=== PATIENT | female | born 1970 | race African-American/Black ===

== ENCOUNTER 2016-06-14 13:38 | Emergency (ER) | payer SELFPAY ==
--- NOTE | 2016-06-14 13:51 | ER Document Report ---
ED Medical Screen (RME) - General Stated Complaint: DIZZINESS Notes: Patient complains of intermittent dizziness and lightheadedness. States she has had episodes of this past and was diagnosed with anemia. Also complains of left hand numbness and sore throat. Patient does have history of carpal tunnel in left hand and wears a brace. She denies chest pain or shortness of breath. States she had a fever on Monday of 100.1. Denies nasal congestion. Patient states she was told recently that she has a type II diabetic per the health department. 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 I have greeted and performed a rapid initial assessment of this patient. A comprehensive ED assessment and evaluation of the patient, analysis of test results and completion of the medical decision making process will be conducted by additional ED providers. TRAVEL OUTSIDE OF THE [place] IN LAST 30 DAYS: No - Related Data Allergies/Adverse Reactions: Penicillins Allergy (Verified 06/14/16 13:50) Edema Past Medical History - Past Medical History Cardiac Medical History: Reports: Hx Hypertension Past Surgical History: Reports: Hx Section - x2, Hx Gynecologic Surgery - DNC, Hx Tubal Ligation - Immunizations Hx Diphtheria, Pertussis, Tetanus Vaccination: Yes Physical Exam - Vital signs Vitals: Temp Pulse Resp BP Pulse Ox 98.6 F 83 16 162/84 H 97 06/14/16 13:43 06/14/16 13:43 06/14/16 13:43 06/14/16 13:43 06/14/16 13:43 Course - Vital Signs Vital signs: Temp Pulse Resp BP Pulse Ox 98.6 F 83 16 162/84 H 97 06/14/16 13:43 06/14/16 13:43 06/14/16 13:43 06/14/16 13:43 06/14/16 13:43
[2016-06-14 14:21] LABS: ABSOLUTE EOSINOPHILS # (AUTO) 0.3 10^3/uL (0.0-0.6); ABSOLUTE LYMPHOCYTES (AUTO) 2.7 10^3/uL (0.5-4.7); ABSOLUTE MONOCYTES (AUTO) 0.6 10^3/uL (0.1-1.4); ABSOLUTE NEUT (AUTO) 3.4 10^3/uL (1.7-8.2); APPEARANCE,URINE CLEAR; BASOPHILS % (AUTO) 0.6 % (0-2); BILIRUBIN,URINE NEGATIVE (NEGATIVE); EOSINOPHILS % (AUTO) 3.7 % (0-6); GLUCOSE, URINE NEGATIVE (NEGATIVE); HEMATOCRIT 25.6 % (36.0-47.0); HGB HCT DIFFERENCE -3.1; KETONES,URINE NEGATIVE (NEGATIVE); LEUKOCYTE ESTERASE,URINE SMALL (NEGATIVE); LYMPHOCYTES % (AUTO) 38.7 % (13-45); MEAN CORPUSCULAR HEMOGLOBIN 16.2 pg (27.0-33.4); MEAN CORPUSCULAR HGB CONC 29.5 g/dL (32.0-36.0); MONOCYTES % (AUTO) 8.6 % (3-13); NITRITE,URINE NEGATIVE (NEGATIVE); PROTEIN,URINE NEGATIVE (NEGATIVE); RED BLOOD COUNT 4.66 10^6/uL (3.72-5.28); RED CELL DISTRIBUTION WIDTH 22.3 % (11.5-14.0); SEGMENTED NEUTROPHILS % (AUTO) 48.4 % (42-78); URINE SPECIFIC GRAVITY 1.014
[2016-06-14 14:33] LABS: HEMOGLOBIN 7.5 g/dL (12.0-15.5)
[2016-06-14 14:34] LABS: MEAN CORPUSCULAR VOLUME 55 fl (80-97)
[2016-06-14 14:39] LABS: ALANINE AMINOTRANSFERASE 25 U/L (9-52); ALBUMIN 3.6 g/dL (3.5-5.0); ALKALINE PHOSPHATASE 87 U/L (38-126); ANION GAP 12 (5-19); ASPARTATE AMINO TRANSFERASE 22 U/L (14-36); BILIRUBIN,DIRECT 0.2 mg/dL (0.0-0.4); BILIRUBIN,TOTAL 0.5 mg/dL (0.2-1.3); BLOOD UREA NITROGEN 8 mg/dL (7-20); CALCIUM 8.9 mg/dL (8.4-10.2); CARBON DIOXIDE 22 mmol/L (22-30); CHLORIDE 107 mmol/L (98-107); CREATININE RESULT 0.65 mg/dL (0.52-1.25); GLUCOSE 131 mg/dL (75-110); POTASSIUM 4.3 mmol/L (3.6-5.0); SODIUM 141.3 mmol/L (137-145); TOTAL PROTEIN 7.3 g/dL (6.3-8.2)
[2016-06-14 14:49] LABS: ANISOCYTOSIS 3+; HYPOCHROMASIA 2+; MICROCYTOSIS 4+; OVALOCYTES 2+; POIKILOCYTOSIS 2+; POLYCHROMASIA SLIGHT; ROULEAUX 1+; SCHISTOCYTES SLIGHT
--- NOTE | 2016-06-14 16:26 | ER Document Report ---
ED General - General TRAVEL OUTSIDE OF THE [place] IN LAST 30 DAYS: No <ARACELIS MENEZES - Last Filed: 06/14/16 16:40> - General Mode of Arrival: Ambulatory Information source: Patient - HPI Onset: Other - Last night Onset/Duration: Gradual Severity: Moderate Associated symptoms: Fever - Single temp 100.1 3 days ago, Headache, Sore throat. denies: Chest pain, Productive cough, Diarrhea, Rhinnorhea <NOHEMI LY - Last Filed: 06/14/16 17:50> - General Chief Complaint: Headache <24 hrs old Stated Complaint: DIZZINESS and Headache Notes: This is a 45-year-old female with history of anemia and hypertension. She presents with chief complaint of sharp intermittent headache though she does have dizziness that she relates to a history of anemia as well as tingling and numbness in her left hand radiating up her arm consistent with her carpal tunnel history. Her headache is bitemporal in origin gradually started last night. She denies other associated symptoms. She has been out of her medication for her hypertension since yesterday. No vision loss, no nausea vomiting diarrhea cough or cold symptoms except for an isolated temperature 3 days ago of 100.1. She has mild sore throat. She currently denies any active bleeding (NOHEMI LY) - Related Data Allergies/Adverse Reactions: Penicillins Allergy (Verified 06/14/16 13:50) Edema Past Medical History - General Information source: Patient - Social History Smoking Status: Never Smoker Chew tobacco use (# tins/day): No Frequency of alcohol use: None Drug Abuse: None Family History: Reviewed & Not Pertinent Patient has suicidal ideation: No Patient has homicidal ideation: No - Past Medical History Cardiac Medical History: Reports: Hx Hypertension, Other - Anemia Renal/ Medical History: Denies: Hx Peritoneal Dialysis Past Surgical History: Reports: Hx Section - x2, Hx Gynecologic Surgery - DNC, Hx Tubal Ligation - Immunizations Hx Diphtheria, Pertussis, Tetanus Vaccination: Yes <ARACELIS MENEZES - Last Filed: 06/14/16 16:40> Review of Systems - Review of Systems Constitutional: See HPI, Fever - 101.1 F 3 days ago EENT: See HPI, Throat pain. denies: Blurred vision, Double vision Cardiovascular: See HPI, Dizziness, Lightheaded. denies: Chest pain Respiratory: No symptoms reported. denies: Cough, Short of breath Gastrointestinal: No symptoms reported. denies: Nausea, Vomiting Genitourinary: No symptoms reported Female Genitourinary: No symptoms reported Musculoskeletal: No symptoms reported Skin: No symptoms reported Hematologic/Lymphatic: No symptoms reported Neurological/Psychological: See HPI, Headaches - sharp and intermittent, Numbness - left hand secondary to carpal tunnel -: Yes All other systems reviewed and negative <ARACELIS MENEZES - Last Filed: 06/14/16 16:40> Physical Exam - General General appearance: Alert In distress: None - HEENT Head: Normocephalic, Atraumatic, Other - No temporal artery tenderness or nodularity Eyes: Normal Conjunctiva: Normal Cornea: Normal Extraocular movements intact: Yes Pupils: PERRL Ears: Normal External canal: Normal Tympanic membrane: Normal Neck: Normal - supple - Respiratory Respiratory status: No respiratory distress Breath sounds: Normal - Cardiovascular Rhythm: Regular Heart sounds: Normal auscultation Murmur: Yes - 2/6 murmur - Abdominal Inspection: Normal - Back Back: Normal - Extremities General upper extremity: Normal inspection, Normal ROM General lower extremity: Normal inspection, Normal ROM - Neurological Neuro grossly intact: Yes Cognition: Normal Orientation: AAOx4 Aide Coma Scale Eye Opening: Spontaneous Aide Coma Scale Verbal: Oriented [place] Coma Scale Motor: Obeys Commands Aide Coma Scale Total: 15 Speech: Normal - Psychological Associated symptoms: Normal affect, Normal mood - Skin Skin Temperature: Warm Skin Moisture: Dry Skin Color: Normal <ARACELIS MENEZES - Last Filed: 06/14/16 16:40> Course - Laboratory Result Diagrams: 06/14/16 13:50 06/14/16 13:50 <ARACELIS MENEZES - Last Filed: 06/14/16 16:40> - Laboratory Result Diagrams: 06/14/16 13:50 06/14/16 13:50 <NOHEMI LY - Last Filed: 06/14/16 17:50> - Re-evaluation Re-evalutation: 06/14/16 16:35 I discussed the patient's anemia with her. This seems consistent with her prior menometrorrhagia. She is not currently having any active bleeding. She reports they have been talking about a hysterectomy and she is awaiting final decision on this but understands warning signs to watch for and repeat CBC as is continuing to lower. Her blood pressure is elevated here but she has not taking her Norvasc 10 mg daily as she has been out for the last few days. We will provide her a short prescription for follow-up as well with this. She's been given a list of physicians for follow-up as well. (NOHEMI LY) - Vital Signs Vital signs: Temp Pulse Resp BP Pulse Ox 97.6 F 72 18 167/86 H 100 06/14/16 16:42 06/14/16 16:42 06/14/16 16:42 06/14/16 16:42 06/14/16 16:42 - Laboratory Laboratory results interpreted by me: 06/14/16 06/14/16 06/14/16 13:50 13:50 13:50 Hgb 7.5 L Hct 25.6 L MCV 55 L MCH 16.2 L MCHC 29.5 L RDW 22.3 H Glucose 131 H Urine Urobilinogen 2.0 H Ur Leukocyte Esterase SMALL H 06/14/16 17:39 (NOHEMI LY) Discharge <ARACELIS MENEZES - Last Filed: 06/14/16 16:40> <NOHEMI LY - Last Filed: 06/14/16 17:50> - Discharge Clinical Impression: Headache, Anemia, Paresthesia Condition: Stable Disposition: HOME, SELF-CARE Additional Instructions: Return for worsening or concern. Make sure you get follow-up as discussed regarding the mild heart murmur and anemia as well. Prescriptions: Butalb/Acetaminophen/Caffeine [Fioricet (50-325-40 mg) Tablet] 1 - 2 tab PO Q4HP PRN #14 tab PRN Reason: For Headache Amlodipine Besylate [Norvasc 10 mg Tablet] 10 mg PO DAILY #30 tablet Forms: Return to Work, Elevated Blood Pressure Referrals: [facility] [Provider Group] - Follow up in 3-5 days [facility] [Provider Group] - Follow up in 3-5 days Scribe Attestation: 06/14/16 17:47 I personally performed the services described in the documentation, reviewed and edited the documentation which was dictated to the scribe in my presence, and it accurately records my words and actions. (NOHEMI LY) Scribe Documentation - Scribe Written by Rayna:: Rayna Bowling, 06/14/2016 1651 acting as scribe for :: Rachel <ARACELIS MENEZES - Last Filed: 06/14/16 16:40>
[2016-06-14] MEDS ORDERED: AMLODIPINE BESYLATE 10 MG TABLET PO ONE (16:39)
[2016-06-14 18:05] VITALS: BP 185/85
[2016-06-15 13:55] LABS: PATH REVIEW PATHOLOGIST REVIEWED
== END 2016-06-14 18:03 | disposition home or self-care (01) ==
LOC: ER 13:38
DX: R51 Headache (principal); D64.9 Anemia, unspecified; R20.0 Anesthesia of skin; R42 Dizziness and giddiness; I10 Essential (primary) hypertension; J02.9 Acute pharyngitis, unspecified
CPT/HCPCS: 36415; 80053; 81001; 85025; 87070; 87880; 99284